=== PATIENT | female | born 1935 | race Caucasian/White ===

== ENCOUNTER 2018-03-03 11:01 | Emergency (ER) | payer OTHER, MEDICARE ==
[2018-03-03 11:19] VITALS: TEMP 98.2; BMI 28.3
[2018-03-03] MEDS ORDERED: ACETAMINOPHEN 1000 MG/100 ML VIAL (NON FORMULARY) IVPB ONE (12:02)
[2018-03-03] MEDS ORDERED: ACETAMINOPHEN INJECTION 100 ML IVPB ONE (12:06)
--- NOTE | 2018-03-03 12:08 | PDOC ---
History of Present Illness - General Chief Complaint: Pain Stated Complaint: ABD PAIN Time Seen by Provider: 03/03/18 11:35 History Source: Patient - History of Present Illness Timing/Duration: reports: other Quality: reports: other Abdominal Pain Onset Location: reports: RUQ Past History - Past Medical History Allergies/Adverse Reactions: Allergies Allergy/AdvReac Type Severity Reaction Status Date / Time No Known Allergies Allergy Verified 03/03/18 11:15 Home Medications: Ambulatory Orders Docusate Sodium [Colace] 100 mg PO DAILY #30 capsule 03/03/18 COPD: No Hypercholesterolemia: Yes Other medical history: arthritis - Immunization History Immunization Up to Date: Yes - Suicide/Smoking/Psychosocial Hx Smoking History: Never smoked Hx Alcohol Use: No Drug/Substance Use Hx: No Review of Systems - Review of Systems Constitutional: No: Chills, Fever Respiratory: No: Shortness of Breath Cardiac (ROS): No: Chest Pain ABD/GI: Yes: Constipated, Abdominal cramping. No: Blood Streaked Bowels, Diarrhea, Nausea, Rectal Bleeding, Vomiting : No: Dysuria, Flank Pain, Hematuria *Physical Exam - Vital Signs Last Vital Signs Temp Pulse Resp BP Pulse Ox 98.2 F 88 18 150/79 96 03/03/18 11:15 03/03/18 11:15 03/03/18 11:15 03/03/18 11:15 03/03/18 11:15 - Physical Exam General Appearance: Yes: Appropriately Dressed. No: Apparent Distress HEENT: positive: Normal Voice Neck: positive: Supple Respiratory/Chest: positive: Lungs Clear, Normal Breath Sounds. negative: Respiratory Distress Cardiovascular: positive: Regular Rate, S1, S2 Gastrointestinal/Abdominal: positive: Normal Bowel Sounds, Tender (to RUQ, neg murpheys), Soft. negative: Distended, Guarding, Rebound Musculoskeletal: negative: CVA Tenderness Integumentary: positive: Dry, Warm Neurologic: positive: Fully Oriented, Alert, Normal Mood/Affect Moderate Sedation - Procedure Monitoring Vital Signs: Procedure Monitoring Vital Signs Temperature 98.2 F 03/03/18 11:15 Pulse Rate 88 03/03/18 11:15 Respiratory Rate 18 03/03/18 11:15 Blood Pressure 150/79 03/03/18 11:15 O2 Sat by Pulse Oximetry (%) 96 03/03/18 11:15 ED Treatment Course - LABORATORY CBC & Chemistry Diagram: 03/03/18 12:10 03/03/18 12:10 - RADIOLOGY Radiology Studies Ordered: Category Date Time Status ABDOMEN-KUB FLAT PLATE [RAD] Stat Radiology 03/03/18 12:02 Ordered Medical Decision Making - Medical Decision Making 03/03/18 12:03 82-year-old female, history of hyperlipidemia, arthritis, constipation, here with RUQ pain 10 days. Patient unable to describe pain but reports it being a 6 out of 10, intermittent, and possibly worse with certain movements. No CP, SOB , diaphoresis, n/v and denies dysuria/hematuria, f/c. No h/o similar pain and no h/o gallstones or kidney stones. Pt reports that she continues to be constipated despite taking miralax. Had a small bowel movement yesterday. No hematochezia or melena. States she has never been scoped. No recent unexplained weight loss. see exam RUQ pain Biliary colic vs melony, less likely pancreatitis, uti/pyelo, unlikely cardiac Stable w/ minimal ttp to RUQ -pain control -ekg -labs -? US Chronic constipation No BRBPR No unexplained weight loss No scope in past -obs series and possible bowel regimen in ER 03/03/18 12:07 03/03/18 14:34 Fecal debris on abdominal x-ray but no impaction seen. Labs unremarkable. UA still pending. Refuses EKG. Patient reports mild upper abdominal pain now and feels bloated. Will do a trial of bowel regimen and reassess 03/03/18 15:23 Patient declined fleet enema in ED. States she will prefer to go home and perform procedure. Did take the lactulose. Patient offered further observation in ED to see if she can have a bowel movement, but patient declines at this time and requesting discharge. Rpt abd exam benign. UA neg. ED health and social care teacher discussed home care services at patient request. Patient now stable for discharge in care of her niece. Reasons to return to ER discussed with patient , otherwise to follow-up with her PMD in a.m. *DC/Admit/Observation/Transfer Diagnosis at time of Disposition: Upper abdominal pain Constipation Qualifiers: Constipation type: unspecified constipation type Qualified Code(s): K59.00 - Constipation, unspecified - Discharge Dispostion Disposition: HOME Condition at time of disposition: Improved - Prescriptions Prescriptions: Docusate Sodium [Colace] 100 mg PO DAILY #30 capsule - Referrals Referrals: Adolfo Adams MD [Primary Care Provider] - - Patient Instructions Additional Instructions: Your abdominal x-ray showed fecal matter throughout the colon. Your labs were normal. You declined to have the Fleet enema here and instead states that you will perform this on your own at home. We sent Colace to your pharmacy for your ongoing constipation. Also increase fluids and fruits and veggies at home Please follow-up with your doctor in the a.m. If symptoms worsen, return to the ED. The health and social care teacher here have arranged for you to get home care assistance and staff will be calling you in several days - Post Discharge Activity
[2018-03-03 12:21] LABS: BASO % 0.9 % (0-2.0); EOS % 2.3 % (0-4.5); HEMATOCRIT 36.6 % (32.4-45.2); HEMOGLOBIN 12.7 GM/dL (10.7-15.3); MCH 29.8 pg (25.7-33.7); MCHC 34.8 g/dl (32.0-36.0); MEAN CELL VOLUME 85.8 fl (80-96); MEAN PLT VOLUME 7.7 fl (7.5-11.1); NEUT % 68.8 % (42.8-82.8); PLATELET COUNT 574 K/MM3 (134-434); RBC 4.26 M/mm3 (3.60-5.2); RDW 14.5 % (11.6-15.6); WHITE BLOOD COUNT 8.2 K/mm3 (4.0-10.0)
[2018-03-03 12:33] LABS: INR 1.04 (0.83-1.09); PROTHROMBIN TIME (PATIENT) 12.3 SEC (9.7-13.0)
[2018-03-03 13:10] LABS: ALK PHOS 111 U/L (45-117); ANION GAP 12 MMOL/L (8-16); BILIRUBIN,TOTAL 0.3 mg/dL (0.2-1); BLOOD UREA NITROGEN 18 mg/dL (7-18); CALCIUM 8.7 mg/dL (8.5-10.1); CHLORIDE 105 mmol/L (98-107); CO2 23 mmol/L (21-32); CREATININE 0.8 mg/dL (0.55-1.3); GLUCOSE,RANDOM 124 mg/dL (74-106); POTASSIUM 4.5 mmol/L (3.5-5.1); SGOT/AST 45 U/L (15-37); SGPT/ALT 45 U/L (13-61); SODIUM 139 mmol/L (136-145); TOT PROT 7.2 g/dl (6.4-8.2)
[2018-03-03] MEDS ORDERED: SODIUM PHOSPHATE/NA BIPHOS 133 ML ENEMA PR ONE (14:33)
[2018-03-03] MEDS ORDERED: LACTULOSE 20 GM/30 ML UDC (FOR ORAL USE ONLY) PO ONE (14:34)
[2018-03-03 14:45] LABS: URINE APPEARANCE CLEAR; URINE BILIRUBIN NEGATIVE (<2.0 mg/dL); URINE COLOR YELLOW; URINE GLUCOSE (UA) NEGATIVE (NEGATIVE); URINE KETONE NEGATIVE (NEGATIVE); URINE LEUK ESTERASE NEGATIVE (NEGATIVE); URINE NITRITE NEGATIVE (NEGATIVE); URINE PROTEIN NEGATIVE (NEGATIVE); URINE UROBILINOGEN NEGATIVE mg/dL (0.2-1.0)
[2018-03-03 14:47] VITALS: BP 130/97; PULSE 86
[2018-03-03] MEDS ORDERED: LACTULOSE 20 GM/30 ML UDC (FOR ORAL USE ONLY) ONE (14:48)
== END 2018-03-03 15:30 | disposition home or self-care (01) ==
LOC: JER 11:01
PROC: 3E033NZ Introduction of Analgesics, Hypnotics, Sedatives into Peripheral Vein, Percutaneous Approach (ICD-10-PCS; principal; 2018-03-03)
DX: R10.11 Right upper quadrant pain (principal); K59.00 Constipation, unspecified; E78.5 Hyperlipidemia, unspecified; M19.90 Unspecified osteoarthritis, unspecified site
CPT/HCPCS: 36415; 74018-TC-FY; 80053; 81003; 82550; 83690; 84484; 85025; 85610; 96374; 99282-25; J0131

== ENCOUNTER 2020-08-08 10:27 | Emergency (ER) | payer OTHER, MEDICARE ==
[2020-08-08 10:32] VITALS: BMI 28.3
[2020-08-08 11:45] LABS: BASO % 0.9 % (0-2.0); EOS % 2.1 % (0-4.5); HEMATOCRIT 40.7 % (32.4-45.2); LYMPH % 30.4 % (8-40); MCH 29.6 pg (25.7-33.7); MCHC 34.3 g/dl (32.0-36.0); MEAN CELL VOLUME 86.2 fl (80-96); MEAN PLT VOLUME 8.3 fl (7.5-11.1); MONO % 9.3 % (3.8-10.2); NEUT % 57.3 % (42.8-82.8); PLATELET COUNT 311 K/MM3 (134-434); RBC 4.72 M/mm3 (3.60-5.2); RDW 14.5 % (11.6-15.6); WHITE BLOOD COUNT 6.2 K/mm3 (4.0-10.0)
[2020-08-08 12:12] LABS: CALCIUM 8.7 mg/dL (8.5-10.1)
[2020-08-08 12:13] LABS: ALBUMIN 3.7 g/dl (3.4-5.0)
[2020-08-08 12:15] LABS: CREATININE 0.8 mg/dL (0.55-1.3)
[2020-08-08 12:16] LABS: BILIRUBIN,TOTAL 0.4 mg/dL (0.2-1); TOT PROT 7.2 g/dl (6.4-8.2)
[2020-08-08 13:30] LABS: URINE APPEARANCE CLEAR; URINE BILIRUBIN NEGATIVE (NEGATIVE); URINE COLOR YELLOW; URINE GLUCOSE (UA) NEGATIVE (NEGATIVE); URINE KETONE NEGATIVE (NEGATIVE); URINE LEUK ESTERASE NEGATIVE (NEGATIVE); URINE NITRITE NEGATIVE (NEGATIVE); URINE PROTEIN NEGATIVE (NEGATIVE); URINE UROBILINOGEN 0.2 mg/dL (0.2-1.0)
[2020-08-08] MEDS ORDERED: MINERAL OIL ENEMA 133 ML ENEMA PR ONE ×2 (14:09→14:34)
[2020-08-08 15:12] VITALS: PULSE 72; TEMP 98
[2020-08-08 15:23] VITALS: BP 130/57
== END 2020-08-08 15:24 | disposition home or self-care (01) ==
LOC: JER 10:27
DX: K59.00 Constipation, unspecified (principal)
CPT/HCPCS: 36415; 71046-TC-FY; 74019-TC-FY; 80053; 81003; 82150; 83690; 85025; 99285-25